=== PATIENT | male | born 2000 | race Hispanic/Latino ===

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

== ENCOUNTER 2022-01-30 22:01 | Emergency (ER) | payer BC | END 2022-01-31 00:22 | disposition home or self-care (01) | LOC: ERS 22:01 | DX: S83.92XA Sprain of unspecified site of left knee, initial encounter (principal); X58.XXXA Exposure to other specified factors, initial encounter ==

== ENCOUNTER 2022-02-06 07:02 | Outpatient (CLI) | payer BC | END 2022-02-06 07:03 | disposition home or self-care (01) | LOC: BICMRI 07:02 | PROVIDERS: ATTEND Orthopaedic Surgery | DX: M23.92 Unspecified internal derangement of left knee (principal); R60.0 Localized edema; M22.02 Recurrent dislocation of patella, left knee ==

== ENCOUNTER 2022-03-13 08:25 | Outpatient (CLI) | payer BC ==
[2022-03-13 10:46] LABS: Hemoglobin 14.9 g/dL (13.5-17.5); Mean Corpuscular Hemoglobin 28.9 pg (27.0-33.0); Mean Corpuscular Volume 87.6 fl (81.2-95.1); Mean Platelet Volume 9.2 fl (7.4-10.4); Platelet Count 337 10x3/uL (150-450); RBC Distribution Width 12.1 % (11.5-14.5); Red Blood Cell (RBC) Count 5.16 10x6/uL (4.32-5.72); White Blood Cell (WBC) Count 7.8 10x3/uL (3.5-10.5)
[2022-03-13 10:47] LABS: MDiff Complete? YES
[2022-03-13 11:06] LABS: Band 2 % (5-11); Eosinophils 6 % (0-10); Lymphocytes 50 % (28-48); Monocytes 9 % (0-4); Neutrophil 32 % (31-61); Reactive Lymphocytes 1 % (0-10)
[2022-03-13 11:07] LABS: Platelet Morphology Comment Appears Adequate; RBC Morphology Normal
== END 2022-03-13 08:26 | disposition home or self-care (01) ==
LOC: LABBT 08:25
PROVIDERS: ATTEND Orthopaedic Surgery
DX: Z01.812 Encounter for preprocedural laboratory examination (principal); Z20.822 Contact with and (suspected) exposure to COVID-19
CPT/HCPCS: 85025; 87811

== ENCOUNTER 2022-03-14 07:47 | Day surgery (SDC) | payer BC ==
[2022-03-12 15:15] VITALS: BMI 18.6
[2022-03-14] MEDS ORDERED: Fentanyl 100 MCG/2 ML VIAL ONE (08:16)
[2022-03-14] MEDS ORDERED: Midazolam HCl 2 mg/2 ml Vial ONE (08:16)
[2022-03-14] MEDS ORDERED: Bupivacaine HCl 0.5%/Epinephrine 1:200,000/PF 30 ml Vial ONE (09:16)
[2022-03-14] MEDS ORDERED: fentaNYL Citrate/PF 100 MCG/2 ML SYRINGE ONE ×2 (10:48→10:49)
[2022-03-14] MEDS ORDERED: Sodium Chloride 0.9% 100 ML ONE (11:01)
[2022-03-14] MEDS ORDERED: CEFAZOLIN 2 GM VIAL ONE (11:01)
[2022-03-14] MEDS ORDERED: Ondansetron PF 4 MG/2 ML Vial ONE (11:16)
[2022-03-14] MEDS ORDERED: Ketorolac Tromethamine 30 MG/ML VIAL ONE (11:16)
[2022-03-14] MEDS ORDERED: Lidocaine 1% PF 5 ML VIAL ONE (11:16)
[2022-03-14] MEDS ORDERED: PROPOFOL 200 MG/20 ML VIAL ONE (11:16)
== END 2022-03-14 15:18 | disposition home or self-care (01) ==
LOC: SDC 07:47
PROVIDERS: ATTEND Orthopaedic Surgery
PROC: 0QSF0ZZ Reposition Left Patella, Open Approach (ICD-10-PCS; principal; 2022-03-14)
PROC: 3E0T3BZ Introduction of Anesthetic Agent into Peripheral Nerves and Plexi, Percutaneous Approach (ICD-10-PCS; principal; 2022-03-14)
PROC: 0SJD4ZZ Inspection of Left Knee Joint, Percutaneous Endoscopic Approach (ICD-10-PCS; principal; 2022-03-14)
DX: S76.112A Strain of left quadriceps muscle, fascia and tendon, initial encounter (principal); M23.52 Chronic instability of knee, left knee; S83.8X2A Sprain of other specified parts of left knee, initial encounter; Y93.02 Activity, running
CPT/HCPCS: 76000; J0690; J1885; J2250; J2405; J2704; J3010; J3490